=== PATIENT | male | born 1965 | race Caucasian/White ===

== ENCOUNTER 2021-08-11 09:09 | Inpatient (IN) | payer OTHER, SELFPAY ==
[2021-08-11] VITALS (19 sets, daily range): BP systolic 149–190; BP diastolic 82–114; PULSE 82–119; RESP 16–40; TEMP 36.5–36.9; O2SAT 88–99; BMI 19.0; BMI 18.7
--- NOTE | 2021-08-11 09:23 | XR_ITS ---
PROCEDURE: XR CHEST PORTABLE CLINICAL HISTORY: cough COMPARISON: No exams were available for comparison FINDINGS: There is a large left pneumothorax. There is no significant mediastinal shift to suggest tension pneumothorax. Cardiomediastinal silhouette is not enlarged pulmonary vascular markings in the remaining aerated lung and the right lung are unremarkable. There are is no pleural effusion. There is no subcutaneous emphysema to suggest penetrating injury are no definite fractures identified. No definite nodules. There is a calcified granuloma. IMPRESSION: Large left pneumothorax. At the time of this critical finding the patient already had a left chest tube placed. Dictated by: Milena Dorsey MD 08/11/2021 14:33 Milena Dorsey MD in [place] 08/11/2021 14:33
[2021-08-11 09:44] LABS: Basophils # 0.1 K/mm3 (0-0.2); Basophils % 1.3 % (0.1-2.0); Eosinophils # 0.2 K/mm3 (0.0-0.4); Eosinophils % 3.3 % (0.1-12.0); Hematocrit 53.6 % (42.0-52.0); Hemoglobin 17.9 g/dL (14.1-18.0); Lymphocytes % 16.1 % (10-50); Mean Corpuscular HGB Conc 33.4 g/dL (31.8-35.4); Mean Corpuscular Hemoglobin 37.2 pg (27.0-31.2); Mean Corpuscular Volume 111.3 fl (80-94); Mean Platelet Volume 9.2 fl (7.4-10.4); Monocytes # 0.3 K/mm3 (0.1-1.0); Monocytes % 4.8 % (1.7-9.3); Neutrophils # 4.8 K/mm3 (1.8-7.8); Neutrophils % 74.6 % (37.0-80.0); Platelet Count 227 K/mm3 (142-424); Red Blood Count 4.82 M/mm3 (4.60-6.20); Red Cell Distribution Width 13.4 % (11.5-17.5); White Blood Count 6.4 K/mm3 (4.8-10.8)
[2021-08-11 09:45] LABS: ABG Base Excess 2.3 mmol/L (-2.4-2.3); ABG HCO3 26.5 mmhg (22.0-26.0); ABG Oxygen Saturation 95 % (90-100); ABG PH 7.44 mmol/L (7.35-7.45); ABG PO2 75.1 mmhg (80-100); ABG TCO2 27.7 mmhg (23-27); Oxygen 5 %
[2021-08-11 09:46] LABS: Allen's Test ACCEPTABLE; Source Left Radial
[2021-08-11 09:57] LABS: Alanine Aminotransferase 45 U/L (12-78); Albumin Level 4.1 g/dl (3.5-5.0); Albumin/Globulin Ratio 0.9 (1.1-1.8); Alkaline Phosphatase 191 U/L (38-126); Anion Gap 12.4 mEq/L (5-15); Aspartate Amino Transferase 65 U/L (17-59); Bilirubin,Total 0.6 mg/dl (0.2-1.3); Blood Urea Nitrogen 7 mg/dl (9-20); Carbon Dioxide 32 mmol/L (22.0-30.0); Chloride 102 mmol/L (98-107); Creatinine Clearance Estimated 123 mL/min (50-200); Estimated Glomerular Filt Rate 139 ml/min (>60); GFR (African American) 169 ML/MIN (>60); Globulin 4.5 g/dL (1.3-3.2); Glucose 121 mg/dl (74-100); Potassium 3.4 mmoL/L (3.5-5.1); Sodium 143 mmol/L (136-145); Total Protein,Serum 8.6 g/dl (6.3-8.2)
--- NOTE | 2021-08-11 09:57 | ECG_ITS ---
APPROVED REPORT Exam: Resting ECG HR:101 bpm ECG Measurements Heart Rate 101 AXES TX 156 P 71 QRSd 76 QRS 259 QT 372 T 66 QTc 482 Conclusion Sinus tachycardia with fusion complexes Right superior axis deviation Anteroseptal infarct, age undetermined Abnormal ECG Electronically signed by : Camilo Reid MD 08/11/2021 21:15:51
[2021-08-11 10:08] LABS: NT Pro Brain Natriuretic Pep. 310 pg/mL (0-125)
--- NOTE | 2021-08-11 10:15 | PC.NURSE ---
conscious sedation started at 1015. at the bedside for chest tube placement. 24fr placed
[2021-08-11 10:16] LABS: Troponin I < 0.01 ng/ml (0.00-0.034)
[2021-08-11 10:23] LABS: Coronavirus 19, PCR Not Detected (NotDetected); Influenza A, PCR Not Detected (NotDetected); Influenza B, PCR Not Detected (NotDetected)
--- NOTE | 2021-08-11 10:45 | XR_ITS ---
PROCEDURE: XR CHEST PORTABLE CLINICAL HISTORY: cough Large left pneumothorax status post chest tube COMPARISON: CR XR CHEST PORTABLE from 08/11/2021 FINDINGS: There is trace apical left extrapleural air. The pneumothorax is otherwise resolved. There appears to be a large emphysematous bleb in the right lung. This may account for the left pneumothorax and could be followed up with CT in the future. No definite pleural fluid or other pulmonary lesions. There is this no enlargement of the cardiomediastinal silhouette. There are otherwise no new finding since prior study IMPRESSION: 1. Small residual left pneumothorax after left chest tube placement. 2. Large right lung emphysematous bleb, suggesting left lung bleb rupture may have produced a pneumothorax. Further evaluation could be obtained with CT. Dictated by: Milena Dorsey MD 08/11/2021 14:44 Milena Dorsey MD in [place] 08/11/2021 14:44
--- NOTE | 2021-08-11 11:28 | HMH.EDGENADL ---
ED Disposition Clinical Impression: Pneumothorax, left COPD (chronic obstructive pulmonary disease) Qualifiers: COPD type: chronic bronchitis Chronic bronchitis type: simple Qualified Code(s): J41.0 - Simple chronic bronchitis Disposition: Admitted As Inpatient Condition on Discharge: Fair Referrals: Provider,Referral, [Primary Care Provider] - - Critical Care Critical Care Time: No Attestation: On 08/11/21, the high probability of a clinically significant, sudden or life threatening deterioration of the following system(s) required my full and direct attention, intervention and personal management. The time I documented below is in addition to time spent performing reported procedures but includes the following listed in this critical care notation. Medical Decision Making - Medical Records Medical records reviewed: Yes: I reviewed the patient's medical records. - Nicolás Inquiry Pt receiving controlled substance: No Vital Signs: 08/11/21 09:09 08/11/21 09:23 08/11/21 10:15 Temperature 98.5 F Temperature Source Oral Pulse Rate [Left Radial] 112 H 98 H Respiratory Rate 40 H 20 Blood Pressure [Right Arm] 172/114 H 158/93 H Blood Pressure Mean [Right Arm] 133 114 Blood Pressure Source [Right Arm] Automatic Cuff Blood Pressure Position [Right Arm] Sitting Supine 02 Sat by Pulse Oximetry 88 L 94 L 97 Oxygen Delivery Method Room Air Nasal Cannula Nasal Cannula Oxygen Flow Rate (LPM) 4 5 08/11/21 10:20 08/11/21 10:25 08/11/21 10:30 Temperature Temperature Source Pulse Rate [Left Radial] 100 H 96 H 98 H Respiratory Rate 20 20 21 Blood Pressure [Right Arm] 170/98 H 175/103 H 152/88 H Blood Pressure Mean [Right Arm] 122 127 109 Blood Pressure Source [Right Arm] Blood Pressure Position [Right Arm] 02 Sat by Pulse Oximetry 98 98 97 Oxygen Delivery Method Nasal Cannula Nasal Cannula Nasal Cannula Oxygen Flow Rate (LPM) 5 5 5 08/11/21 10:35 08/11/21 10:40 08/11/21 10:45 Temperature Temperature Source Pulse Rate [Left Radial] 96 H 119 H 103 H Respiratory Rate 17 20 20 Blood Pressure [Right Arm] 176/95 H 153/82 H 168/97 H Blood Pressure Mean [Right Arm] 122 105 120 Blood Pressure Source [Right Arm] Blood Pressure Position [Right Arm] 02 Sat by Pulse Oximetry 96 88 L 98 Oxygen Delivery Method Nasal Cannula Nasal Cannula Nasal Cannula Oxygen Flow Rate (LPM) 5 5 5 08/11/21 11:00 08/11/21 11:15 08/11/21 11:30 Temperature Temperature Source Pulse Rate [Left Radial] 91 H 90 89 Respiratory Rate 19 20 17 Blood Pressure [Right Arm] 150/96 H 163/99 H 149/93 H Blood Pressure Mean [Right Arm] 114 120 111 Blood Pressure Source [Right Arm] Blood Pressure Position [Right Arm] 02 Sat by Pulse Oximetry 98 98 97 Oxygen Delivery Method Non-Rebreather Non-Rebreather Non-Rebreather Oxygen Flow Rate (LPM) 10 10 7 - Lab Data Lab Results 08/11/21 09:24: Specimen Source Left radial, O2 % 5, ABG pH 7.44, ABG pCO2 40.0, ABG pO2 75.1 L, ABG HCO3 26.5 H, ABG Total CO2 27.7 H, ABG O2 Saturation 95, ABG Base Excess 2.3, Valdemar Test Acceptable 08/11/21 09:30: WBC 6.4, RBC 4.82, Hgb 17.9, Hct 53.6 H, MCV 111.3 H, MCH 37.2 H, MCHC 33.4, RDW 13.4, Plt Count 227, MPV 9.2, Neut % (Auto) 74.6, Lymph % (Auto) 16.1, [place] % (Auto) 4.8, Eos % (Auto) 3.3, Baso % (Auto) 1.3, Neut # (Auto) 4.8, Lymph # (Auto) 1.0, [place] # (Auto) 0.3, Eos # (Auto) 0.2, Baso # (Auto) 0.1 08/11/21 09:30: Sodium 143, Potassium 3.4 L, Chloride 102, Carbon Dioxide 32 H, Anion Gap 12.4, BUN 7 L, Creatinine 0.60 L, Estimated Creat Clear 123, Estimated GFR 139, Est GFR ( Amer) 169, Glucose 121 H, Calcium 9.0, Total Bilirubin 0.6, AST 65 H, ALT 45, Alkaline Phosphatase 191 H, Troponin I < 0.01, NT-Pro-B Natriuret Pep 310 H, Total Protein 8.6 H, Albumin 4.1, Globulin 4.5 H, Albumin/Globulin Ratio 0.9 L 08/11/21 09:31: SARS-CoV-2 (PCR) Not detected, Influenza A Untype (PCR) Not detected, Influenza Type B (PCR) Not detec
--- NOTE | 2021-08-11 12:38 | HMH.PHAINT ---
MEDICATION RECONCILIATION COMPLETE. NO MAINTENANCE MEDS. NON-ADHERENT TO FOLLOW UPS AND NO PCP
--- NOTE | 2021-08-11 13:04 | PC.NURSE ---
report called to floor
--- NOTE | 2021-08-11 13:07 | P.CONPHA_ITS ---
[facility] Pharmacy VTE Monitoring - Patient Demographics Admission date: 08/11/21 Report Date: 08/11/21 Time: 13:07 Allergies/Adverse Reactions: Patient Allergies No Known Allergies Allergy (Verified 08/11/21 09:31) Height: 1.83 m Weight: 63.503 kg Patient Problems: Current Active Problems COPD (chronic obstructive pulmonary disease) (Acute) Pneumothorax, left (Acute) - VTE Risk Labs: VTE Related Lab Results Hgb 17.9 g/dL (14.1-18.0) 08/11/21 09:30 Hct 53.6 % (42.0-52.0) H 08/11/21 09:30 Plt Count 227 K/mm3 (142-424) 08/11/21 09:30 BUN 7 mg/dl (9-20) L 08/11/21 09:30 Creatinine 0.60 mg/dl (0.66-1.25) L 08/11/21 09:30 Estimated Creat Clear 123 mL/min (50-200) 08/11/21 09:30 - Prophylaxis VTE Prophylaxis Ordered?: Yes Types of VTE Prophylaxis: TEDS Knee High, Pharmacological Location of Applied Device: Bilateral Lower Extremeties Pharmacologic Type: Enoxaparin
--- NOTE | 2021-08-11 15:26 | HMH.GSCON ---
*Admission Date: 08/11/21 *Reason for consult:: Chest tube management *History of present illness: Patient is a 56-year-old male with history of COPD with previous history of pneumothorax who had presented to the emergency department this morning after he experienced onset of left-sided chest pain and some difficulty breathing yesterday evening. He had previous history of left-sided chest tube for spontaneous pneumothorax at [facility]. Evaluation in the emergency department this morning revealed large left-sided pneumothorax. Chest tube was placed by the ER physician. Arrangements were made for admission. Surgical consultation was obtained to help with chest tube management. Review of Systems - Review of Systems Review of systems:: pertinent systems reviewed and negative unless documented below - *Neurologic Denies headache(s) [facility] History I have reviewed the patient's past medical history: Yes Medical History: Denies:: Cancer, Diabetes Mellitus Type 1, Diabetes Mellitus Type 2, MRSA *Have you ever received a pneumonia vaccine?: No *Have you received a flu vaccine this season?: No Amputation: No Fractures: No - *Social History Last grade of school completed: 11th or 12th Smoking Status: Current every day smoker Tobacco Type: cigarettes # Packs/Day (cigarettes): 2 Alcohol Intake: current Alcohol Intake Frequency:: 3 or more drinks per day Substance Use Type: marijuana Last Used Substance: days (ago) *Occupational Status:: employed Housing: house *Travel in the last 8 weeks: None Family Hx:: Asthma, Cancer, Heart Attack, Hyperlipidemia, Hypertension, Substance abuse, Alcoholism, Mental illness Meds Home Medications Medication Instructions Recorded Confirmed Type No Known Home Medications 08/11/21 08/11/21 History Allergies Allergy/AdvReac Type Severity Reaction Status Date / Time No Known Allergies Allergy Verified 08/11/21 09:31 Exam Vital signs and Labs for Last 24 Hours: Temp Pulse Resp BP Pulse Ox 98.2 F 91 H 21 153/96 H 97 08/11/21 14:24 08/11/21 14:24 08/11/21 14:24 08/11/21 14:24 08/11/21 14:00 Laboratory Results - last 24 hr 08/11/21 09:24: Specimen Source Left radial, O2 % 5, ABG pH 7.44, ABG pCO2 40.0, ABG pO2 75.1 L, ABG HCO3 26.5 H, ABG Total CO2 27.7 H, ABG O2 Saturation 95, ABG Base Excess 2.3, Valdemar Test Acceptable 08/11/21 09:30: WBC 6.4, RBC 4.82, Hgb 17.9, Hct 53.6 H, MCV 111.3 H, MCH 37.2 H, MCHC 33.4, RDW 13.4, Plt Count 227, MPV 9.2, Neut % (Auto) 74.6, Lymph % (Auto) 16.1, [place] % (Auto) 4.8, Eos % (Auto) 3.3, Baso % (Auto) 1.3, Neut # (Auto) 4.8, Lymph # (Auto) 1.0, [place] # (Auto) 0.3, Eos # (Auto) 0.2, Baso # (Auto) 0.1 08/11/21 09:30: Sodium 143, Potassium 3.4 L, Chloride 102, Carbon Dioxide 32 H, Anion Gap 12.4, BUN 7 L, Creatinine 0.60 L, Estimated Creat Clear 123, Estimated GFR 139, Est GFR ( Amer) 169, Glucose 121 H, Calcium 9.0, Total Bilirubin 0.6, AST 65 H, ALT 45, Alkaline Phosphatase 191 H, Troponin I < 0.01, NT-Pro-B Natriuret Pep 310 H, Total Protein 8.6 H, Albumin 4.1, Globulin 4.5 H, Albumin/Globulin Ratio 0.9 L 08/11/21 09:31: SARS-CoV-2 (PCR) Not detected, Influenza A Untype (PCR) Not detected, Influenza Type B (PCR) Not detected I & O for Last 24 hours: Intake & Output 08/09/21 08/10/21 08/11/21 08/12/21 11:59 11:59 11:59 11:59 Weight 140 lb 138 lb - Routine Chest/Breast/Axilla Exam Comments: Left chest tube with dressing in place Results - Labs 08/11/21 09:30 08/11/21 09:30 Laboratory Results - last 24 hr 08/11/21 09:24: Specimen Source Left radial, O2 % 5, ABG pH 7.44, ABG pCO2 40.0, ABG pO2 75.1 L, ABG HCO3 26.5 H, ABG Total CO2 27.7 H, ABG O2 Saturation 95, ABG Base Excess 2.3, Valdemar Test Acceptable 08/11/21 09:30: WBC 6.4, RBC 4.82, Hgb 17.9, Hct 53.6 H, MCV 111.3 H, MCH 37.2 H, MCHC 33.4, RDW 13.4, Plt Count 227, MPV 9.2, Neut % (Auto) 74.6, Lymph % (Auto) 16.1, [place] % (Auto) 4.8, Eos %
--- NOTE | 2021-08-11 16:45 | HMH.HP ---
*Admission Date: 08/11/21 *Chief complaint: Chest pain and shortness of breath *History of present illness: 56-year-old male with significant smoking history and history of prior pneumothorax of the left lung approximately 3 to 4 years ago presented to the emergency department on August 11 after developing acute onset of left-sided chest pain with shortness of breath on the evening of August 10. In the emergency department patient was found to have large left pneumothorax. Chest tube was placed by ER physician with reexpansion of the left lung. Patient has been admitted with for his pneumothorax and need for chest tube management. General surgery has been consulted for chest tube management. Patient had pain earlier in the shift at chest tube site but this has been relieved with Toradol. He reports a history of opiate dependence and would like to avoid opiate pain medications. Significant history also includes daily alcohol use drinking a half to a whole fifth of rum. Patient smokes marijuana frequently. He is a 1 to 3 pack/day smoker since the age of 16. [facility] for a left-sided pneumothorax that resolved with placement of chest tube. There is no family history of pneumothoraces [facility] History I have reviewed the patient's past medical history: Yes Medical History: Denies:: Cancer, Diabetes Mellitus Type 1, Diabetes Mellitus Type 2, MRSA *Have you ever received a pneumonia vaccine?: No *Have you received a flu vaccine this season?: No Comment:: Pneumothorax Other Surgeries: Yes: No Previous Surgery Amputation: No Fractures: No - *Social History Last grade of school completed: 11th or 12th Smoking Status: Current every day smoker Tobacco Type: cigarettes # Packs/Day (cigarettes): 2 Alcohol Intake: current Alcohol Intake Frequency:: 3 or more drinks per day Substance Use Type: marijuana Last Used Substance: days (ago) *Occupational Status:: employed Housing: house *Travel in the last 8 weeks: None Family Hx:: Asthma, Cancer, Heart Attack, Hyperlipidemia, Hypertension, Substance abuse, Alcoholism, Mental illness Review of Systems - Review of Systems Review of systems:: pertinent systems reviewed and negative unless documented below - *Neurologic Denies headache(s) Meds Home Medications Medication Instructions Recorded Confirmed Type No Known Home Medications 08/11/21 08/11/21 History Allergies Allergy/AdvReac Type Severity Reaction Status Date / Time No Known Allergies Allergy Verified 08/11/21 09:31 Exam Vital signs and Labs for Last 24 Hours: Temp Pulse Resp BP Pulse Ox 98.5 F 85 20 176/106 H 96 08/11/21 15:38 08/11/21 15:38 08/11/21 15:38 08/11/21 15:38 08/11/21 15:38 Laboratory Results - last 24 hr 08/11/21 09:24: Specimen Source Left radial, O2 % 5, ABG pH 7.44, ABG pCO2 40.0, ABG pO2 75.1 L, ABG HCO3 26.5 H, ABG Total CO2 27.7 H, ABG O2 Saturation 95, ABG Base Excess 2.3, Valdemar Test Acceptable 08/11/21 09:30: WBC 6.4, RBC 4.82, Hgb 17.9, Hct 53.6 H, MCV 111.3 H, MCH 37.2 H, MCHC 33.4, RDW 13.4, Plt Count 227, MPV 9.2, Neut % (Auto) 74.6, Lymph % (Auto) 16.1, [place] % (Auto) 4.8, Eos % (Auto) 3.3, Baso % (Auto) 1.3, Neut # (Auto) 4.8, Lymph # (Auto) 1.0, [place] # (Auto) 0.3, Eos # (Auto) 0.2, Baso # (Auto) 0.1 08/11/21 09:30: Sodium 143, Potassium 3.4 L, Chloride 102, Carbon Dioxide 32 H, Anion Gap 12.4, BUN 7 L, Creatinine 0.60 L, Estimated Creat Clear 123, Estimated GFR 139, Est GFR ( Amer) 169, Glucose 121 H, Calcium 9.0, Total Bilirubin 0.6, AST 65 H, ALT 45, Alkaline Phosphatase 191 H, Troponin I < 0.01, NT-Pro-B Natriuret Pep 310 H, Total Protein 8.6 H, Albumin 4.1, Globulin 4.5 H, Albumin/Globulin Ratio 0.9 L 08/11/21 09:31: SARS-CoV-2 (PCR) Not detected, Influenza A Untype (PCR) Not detected, Influenza Type B (PCR) Not detected I & O for Last 24 hours: Intake & Output 08/09/21 08/10/21 08/11/21 10/26/21
[2021-08-12] VITALS: BP 163/95; PULSE 76; RESP 16; TEMP 36.7; O2SAT 98
--- NOTE | 2021-08-12 03:42 | PC.NURSE ---
No acute changes t/o shift. Pt remains on 4L NC with O2 saturation >95%. Chest tube present on left side chest, dressing C/D/I. Pt c/o of pain in left chest x1 admin meds per MAR with relief. Pt's CIWA scores have been 0 this shift. VSS, call light within reach, will continue to monitor.
[2021-08-12 03:49] VITALS: BP 172/90; PULSE 75; RESP 12; TEMP 36.7; O2SAT 100
[2021-08-12 05:10] VITALS: BMI 18.6
[2021-08-12 06:24] LABS: Basophils # 0.1 K/mm3 (0-0.2); Basophils % 1.2 % (0.1-2.0); Eosinophils # 0.4 K/mm3 (0.0-0.4); Eosinophils % 6.7 % (0.1-12.0); Hematocrit 50.6 % (42.0-52.0); Hemoglobin 16.3 g/dL (14.1-18.0); Lymphocytes # 0.9 K/mm3 (0.7-4.5); Lymphocytes % 14.3 % (10-50); Mean Corpuscular HGB Conc 32.3 g/dL (31.8-35.4); Mean Corpuscular Hemoglobin 36.7 pg (27.0-31.2); Mean Corpuscular Volume 113.5 fl (80-94); Mean Platelet Volume 8.7 fl (7.4-10.4); Monocytes # 0.3 K/mm3 (0.1-1.0); Monocytes % 4.7 % (1.7-9.3); Neutrophils # 4.7 K/mm3 (1.8-7.8); Neutrophils % 73.1 % (37.0-80.0); Platelet Count 184 K/mm3 (142-424); Red Blood Count 4.45 M/mm3 (4.60-6.20); Red Cell Distribution Width 13.4 % (11.5-17.5); White Blood Count 6.4 K/mm3 (4.8-10.8)
[2021-08-12 06:39] LABS: Chloride 103 mmol/L (98-107); Potassium 3.2 mmoL/L (3.5-5.1); Sodium 139 mmol/L (136-145)
[2021-08-12 06:42] LABS: Anion Gap 8.2 mEq/L (5-15); Blood Urea Nitrogen 9 mg/dl (9-20); Carbon Dioxide 31 mmol/L (22.0-30.0); Creatinine Clearance Estimated 146 mL/min (50-200); Estimated Glomerular Filt Rate 172 ml/min (>60); GFR (African American) 208 ML/MIN (>60); Glucose 90 mg/dl (74-100)
[2021-08-12 06:57] LABS: Magnesium 1.5 mg/dl (1.6-2.3)
--- NOTE | 2021-08-12 07:23 | HMH.ACPN2 ---
Internal Medicine - PN: Subj *Date: 08/12/21 *Time: 07:23 Interval history: Patient reports pain is well controlled. He does admit some pain with deep breathing. Exam Vital signs and Labs for Last 24 Hours: Temp Pulse Resp BP Pulse Ox 98.1 F 75 12 172/90 H 100 08/12/21 03:49 08/12/21 03:49 08/12/21 03:49 08/12/21 03:49 08/12/21 03:49 Laboratory Results - last 24 hr 08/11/21 09:24: Specimen Source Left radial, O2 % 5, ABG pH 7.44, ABG pCO2 40.0, ABG pO2 75.1 L, ABG HCO3 26.5 H, ABG Total CO2 27.7 H, ABG O2 Saturation 95, ABG Base Excess 2.3, Valdemar Test Acceptable 08/11/21 09:30: WBC 6.4, RBC 4.82, Hgb 17.9, Hct 53.6 H, MCV 111.3 H, MCH 37.2 H, MCHC 33.4, RDW 13.4, Plt Count 227, MPV 9.2, Neut % (Auto) 74.6, Lymph % (Auto) 16.1, [place] % (Auto) 4.8, Eos % (Auto) 3.3, Baso % (Auto) 1.3, Neut # (Auto) 4.8, Lymph # (Auto) 1.0, [place] # (Auto) 0.3, Eos # (Auto) 0.2, Baso # (Auto) 0.1 08/11/21 09:30: Sodium 143, Potassium 3.4 L, Chloride 102, Carbon Dioxide 32 H, Anion Gap 12.4, BUN 7 L, Creatinine 0.60 L, Estimated Creat Clear 123, Estimated GFR 139, Est GFR ( Amer) 169, Glucose 121 H, Calcium 9.0, Total Bilirubin 0.6, AST 65 H, ALT 45, Alkaline Phosphatase 191 H, Troponin I < 0.01, NT-Pro-B Natriuret Pep 310 H, Total Protein 8.6 H, Albumin 4.1, Globulin 4.5 H, Albumin/Globulin Ratio 0.9 L 08/11/21 09:31: SARS-CoV-2 (PCR) Not detected, Influenza A Untype (PCR) Not detected, Influenza Type B (PCR) Not detected 08/12/21 05:30: WBC 6.4, RBC 4.45 L, Hgb 16.3, Hct 50.6, MCV 113.5 H, MCH 36.7 H, MCHC 32.3, RDW 13.4, Plt Count 184, MPV 8.7, Neut % (Auto) 73.1, Lymph % (Auto) 14.3, [place] % (Auto) 4.7, Eos % (Auto) 6.7, Baso % (Auto) 1.2, Neut # (Auto) 4.7, Lymph # (Auto) 0.9, [place] # (Auto) 0.3, Eos # (Auto) 0.4, Baso # (Auto) 0.1 08/12/21 05:30: Sodium 139, Potassium 3.2 L, Chloride 103, Carbon Dioxide 31 H, Anion Gap 8.2, BUN 9 D, Creatinine 0.50 L, Estimated Creat Clear 146, Estimated GFR 172, Est GFR ( Amer) 208 D, Glucose 90 D, Calcium 8.0 L 08/12/21 05:30: Magnesium 1.5 L I & O for Last 24 hours: Intake & Output 08/09/21 08/10/21 08/11/21 08/12/21 11:59 11:59 11:59 11:59 Intake Total 360 / 360 Output Total 410 / 410 Balance -50 / -50 Weight 140 lb 138 lb 0.009 oz - Constitutional no acute distress - *Routine Respiratory Exam Present: rhonchi (On the left) - *Routine Cardiovascular Exam Present: RRR Assessment and Plan (1) Pneumothorax, left Status: Acute Category: Medical Code(s): J93.9 - Pneumothorax, unspecified (2) Ruptured emphysematous bleb of lung Status: Acute Category: Medical Code(s): J43.9 - Emphysema, unspecified (3) Alcoholism Status: Acute Category: Medical Code(s): F10.20 - Alcohol dependence, uncomplicated (4) Cigarette smoker Status: Acute Category: Social Hx Code(s): F17.210 - Nicotine dependence, cigarettes, uncomplicated (5) Marijuana use, continuous Status: Acute Category: Medical Code(s): F12.90 - Cannabis use, unspecified, uncomplicated (6) Hypokalemia Status: Acute Category: Medical Code(s): E87.6 - Hypokalemia - Assessment and plan all Dx Assessment and Plan for all problems:: 1. Patient is stable. Chest tube management per Dr. Alvarez 2. Add potassium for patient's hypokalemia 3. Patient has not shown any signs of alcohol withdrawal. Continue scheduled Ativan with periodic CIWA scoring and use of as needed benzos
[2021-08-12 08:00] VITALS: BP 167/98; PULSE 71; RESP 19; TEMP 36.6; O2SAT 98
--- NOTE | 2021-08-12 08:42 | P.PN_ITS ---
Subjective Patient reports: no new complaints Progress Note: A&P (1) Pneumothorax, left Status: Acute Assessment and plan: Continue chest tube to suction due to air leak. (2) Ruptured emphysematous bleb of lung Status: Acute (3) Alcoholism Status: Acute (4) Cigarette smoker Status: Acute (5) Marijuana use, continuous Status: Acute (6) Hypokalemia Status: Acute Exam Vital signs and Labs for Last 24 Hours: Temp Pulse Resp BP Pulse Ox 98.1 F 75 12 172/90 H 100 08/12/21 03:49 08/12/21 03:49 08/12/21 03:49 08/12/21 03:49 08/12/21 03:49 Laboratory Results - last 24 hr 08/11/21 09:24: Specimen Source Left radial, O2 % 5, ABG pH 7.44, ABG pCO2 40.0, ABG pO2 75.1 L, ABG HCO3 26.5 H, ABG Total CO2 27.7 H, ABG O2 Saturation 95, ABG Base Excess 2.3, Valdemar Test Acceptable 08/11/21 09:30: WBC 6.4, RBC 4.82, Hgb 17.9, Hct 53.6 H, MCV 111.3 H, MCH 37.2 H , MCHC 33.4, RDW 13.4, Plt Count 227, MPV 9.2, Neut % (Auto) 74.6, Lymph % (Auto) 16.1, [place] % (Auto) 4.8, Eos % (Auto) 3.3, Baso % (Auto) 1.3, Neut # (Auto) 4.8, Lymph # (Auto) 1.0, [place] # (Auto) 0.3, Eos # (Auto) 0.2, Baso # (Auto) 0.1 08/11/21 09:30: Sodium 143, Potassium 3.4 L, Chloride 102, Carbon Dioxide 32 H, Anion Gap 12.4, BUN 7 L, Creatinine 0.60 L, Estimated Creat Clear 123, Estimated GFR 139, Est GFR ( Amer) 169, Glucose 121 H, Calcium 9.0, Total Bilirubin 0.6, AST 65 H, ALT 45, Alkaline Phosphatase 191 H, Troponin I < 0.01, NT-Pro-B Natriuret Pep 310 H, Total Protein 8.6 H, Albumin 4.1, Globulin 4.5 H, Albumin/Globulin Ratio 0.9 L 08/11/21 09:31: SARS-CoV-2 (PCR) Not detected, Influenza A Untype (PCR) Not detected, Influenza Type B (PCR) Not detected 08/12/21 05:30: WBC 6.4, RBC 4.45 L, Hgb 16.3, Hct 50.6, MCV 113.5 H, MCH 36.7 H , MCHC 32.3, RDW 13.4, Plt Count 184, MPV 8.7, Neut % (Auto) 73.1, Lymph % (Auto) 14.3, [place] % (Auto) 4.7, Eos % (Auto) 6.7, Baso % (Auto) 1.2, Neut # (Auto) 4.7, Lymph # (Auto) 0.9, [place] # (Auto) 0.3, Eos # (Auto) 0.4, Baso # (Auto) 0.1 08/12/21 05:30: Sodium 139, Potassium 3.2 L, Chloride 103, Carbon Dioxide 31 H, Anion Gap 8.2, BUN 9 D, Creatinine 0.50 L, Estimated Creat Clear 146, Estimated GFR 172, Est GFR ( Amer) 208 D, Glucose 90 D, Calcium 8.0 L 08/12/21 05:30: Magnesium 1.5 L I & O for Last 24 hours: Intake & Output 08/09/21 08/10/21 08/11/21 08/12/21 11:59 11:59 11:59 11:59 Intake Total 360 / 360 Output Total 410 / 410 Balance -50 / -50 Weight 140 lb 138 lb 0.009 oz - Routine Chest/Breast/Axilla Exam Comments: Chest tube dressing intact. Positive air leak.
--- NOTE | 2021-08-12 08:44 | XR_ITS ---
PROCEDURE: XR CHEST PORTABLE CLINICAL HISTORY: PNEUMOTHORAX COMPARISON: CR XR CHEST PORTABLE from 08/11/2021 CR XR CHEST PORTABLE from 08/11/2021 FINDINGS: There apparently has been interval resolution of the trace left apical pneumothorax. The chest tube remains in place left upper mid chest. Minimal chronic scarring is seen at the left costophrenic angle. Again noted is a large bleb right midlung field. IMPRESSION: Stable chronic lung changes, essentially complete resolution of left-sided pneumothorax Dictated by: Dr. Zachery Shine MD 08/12/2021 10:14 Dr. Zachery Shine MD in [place] 08/12/2021 10:14
[2021-08-12 16:00] VITALS: BP 158/78; PULSE 76; RESP 17; TEMP 36.5; O2SAT 96
--- NOTE | 2021-08-12 17:12 | PC.NURSE ---
Pt has done well this shift. Left chest tube remains intact, dressing remains CDI. 104 mL of [place] drainage noted to pleur-evac this shift. Pt has c/o left chest pain x1 this shift and was medicated with PRN ketorolac w/ favorable results. CIWA scores have been consistently 0 this shift, scheduled ativan has not been needed. No other acute changes or complaints, will continue to monitor.
[2021-08-12 20:00] VITALS: BP 147/88; PULSE 80; RESP 18; TEMP 36.9; O2SAT 97
[2021-08-12 23:51] VITALS: BP 140/78; PULSE 76; RESP 18; TEMP 36.6; O2SAT 97
[2021-08-13 04:00] VITALS: BP 165/94; PULSE 77; RESP 18; TEMP 36.9; O2SAT 93
--- NOTE | 2021-08-13 04:12 | PC.NURSE ---
Addendum entered by Porsche Roman RN 08/13/21 05:52: CIWA scores have all been 0 this shift Original Note: pt A&Ox4, has rested intermittently t/o shift, did complain of pain in the left chest and was treated per DEC, has remained on room air with O2 sats 97%, left chest tube remains intact, dressing C/D/I, 11 mL out so far this shift
[2021-08-13 04:35] VITALS: BMI 18.6
--- NOTE | 2021-08-13 07:03 | HMH.GSPN ---
Subjective Narrative: Patient resting. Observation of the chest tube reveals positive air leak. Progress Note: A&P (1) Pneumothorax, left Status: Acute (2) Ruptured emphysematous bleb of lung Status: Acute (3) Alcoholism Status: Acute (4) Cigarette smoker Status: Acute (5) Marijuana use, continuous Status: Acute (6) Hypokalemia Status: Acute Assessment and Plan for All Diagnoses:: Continue chest tube to suction due to persistent air leak. Chest x-ray yesterday revealed no evidence of any residual pneumothorax. Exam Vital signs and Labs for Last 24 Hours: Temp Pulse Resp BP Pulse Ox 98.4 F 77 18 165/94 H 93 L 08/13/21 04:00 08/13/21 04:00 08/13/21 04:00 08/13/21 04:00 08/13/21 04:00 Laboratory Results - last 24 hr 08/12/21 05:30: Magnesium 1.5 L I & O for Last 24 hours: Intake & Output 08/10/21 08/11/21 08/12/21 08/13/21 11:59 11:59 11:59 11:59 Intake Total 600 / 600 2440 / 2440 Output Total 410 / 410 3715 / 3715 Balance 190 / 190 -1275 / -1275 Weight 140 lb 138 lb 0.009 oz 138 lb
--- NOTE | 2021-08-13 07:16 | HMH.ACPN2 ---
Internal Medicine - PN: Subj *Date: 08/13/21 *Time: 07:16 Interval history: Patient had no acute events. Pain is controlled with Toradol. Patient has been seen by surgery this morning and air leak persists so patient will remain on wall suction. Chest x-ray yesterday shows resolution of the pneumothorax Exam Vital signs and Labs for Last 24 Hours: Temp Pulse Resp BP Pulse Ox 98.4 F 77 18 165/94 H 93 L 08/13/21 04:00 08/13/21 04:00 08/13/21 04:00 08/13/21 04:00 08/13/21 04:00 I & O for Last 24 hours: Intake & Output 08/10/21 08/11/21 08/12/21 08/13/21 11:59 11:59 11:59 11:59 Intake Total 600 / 600 2440 / 2440 Output Total 410 / 410 3715 / 3715 Balance 190 / 190 -1275 / -1275 Weight 140 lb 138 lb 0.009 oz 138 lb - Constitutional no acute distress - *Routine Respiratory Exam Comments: Coarse breath sounds left lung - *Routine Cardiovascular Exam Present: RRR Assessment and Plan (1) Pneumothorax, left Status: Acute Category: Medical Code(s): J93.9 - Pneumothorax, unspecified (2) Ruptured emphysematous bleb of lung Status: Acute Category: Medical Code(s): J43.9 - Emphysema, unspecified (3) Alcoholism Status: Acute Category: Medical Code(s): F10.20 - Alcohol dependence, uncomplicated (4) Cigarette smoker Status: Acute Category: Social Hx Code(s): F17.210 - Nicotine dependence, cigarettes, uncomplicated (5) Marijuana use, continuous Status: Acute Category: Medical Code(s): F12.90 - Cannabis use, unspecified, uncomplicated (6) Hypokalemia Status: Acute Category: Medical Code(s): E87.6 - Hypokalemia - Assessment and plan all Dx Assessment and Plan for all problems:: 1. Continue chest tube 2. Replace magnesium for mild hypomagnesemia
[2021-08-13 07:17] LABS: Chloride 103 mmol/L (98-107)
[2021-08-13 07:18] LABS: Potassium 3.8 mmoL/L (3.5-5.1); Sodium 137 mmol/L (136-145)
[2021-08-13 07:21] LABS: Anion Gap 10.8 mEq/L (5-15); Blood Urea Nitrogen 9 mg/dl (9-20); Calcium 8.8 mg/dl (8.4-10.2); Carbon Dioxide 27 mmol/L (22.0-30.0); Creatinine Clearance Estimated 122 mL/min (50-200); Estimated Glomerular Filt Rate 139 ml/min (>60); GFR (African American) 169 ML/MIN (>60); Glucose 89 mg/dl (74-100)
[2021-08-13 08:00] VITALS: BP 149/85; PULSE 88; RESP 18; TEMP 36.7; O2SAT 93
[2021-08-13 10:51] VITALS: RESP 18
[2021-08-13 13:15] LABS: Alpha-1-Antitrypsin 141 mg/dL (101-187)
--- NOTE | 2021-08-13 15:11 | HMH.GSPN ---
Subjective Narrative: Some chest wall pain. Patient states that he feels some possible leak around the chest tube site. Progress Note: A&P (1) Pneumothorax, left Status: Acute (2) Ruptured emphysematous bleb of lung Status: Acute (3) Alcoholism Status: Acute (4) Cigarette smoker Status: Acute (5) Marijuana use, continuous Status: Acute (6) Hypokalemia Status: Acute Assessment and Plan for All Diagnoses:: Persistent air leak. Continue chest tube to suction. If this persists without evidence of resolution could require transfer for thoracic surgery possible thoracoscopic surgical intervention. Exam Vital signs and Labs for Last 24 Hours: Temp Pulse Resp BP Pulse Ox 98.0 F 88 18 149/85 H 93 L 08/13/21 08:00 08/13/21 08:00 08/13/21 10:51 08/13/21 08:00 08/13/21 08:00 Laboratory Results - last 24 hr 08/12/21 05:30: [id number] 141 08/13/21 06:51: Sodium 137, Potassium 3.8, Chloride 103, Carbon Dioxide 27, Anion Gap 10.8, BUN 9, Creatinine 0.60 L, Estimated Creat Clear 122, Estimated GFR 139, Est GFR ( Amer) 169, Glucose 89, Calcium 8.8 I & O for Last 24 hours: Intake & Output 08/11/21 08/12/21 08/13/21 08/14/21 11:59 11:59 11:59 11:59 Intake Total 600 / 600 2920 / 2920 120 / 120 Output Total 410 / 410 3715 / 3715 Balance 190 / 190 -795 / -795 120 / 120 Weight 140 lb 138 lb 0.009 oz 138 lb - Routine Chest/Breast/Axilla Exam Chest wall: Present: tenderness Comments: Dressing changed. Chest tube site intact. Some tenderness and some blistering from tape. No evidence of any leak around the chest tube.
[2021-08-13 15:15] VITALS: RESP 20
--- NOTE | 2021-08-13 15:17 | PC.NURSE ---
Chest tube dressing to L Chest wall taken off by Dr. Alvarez and re-dressed. Small air leak still present, MD aware. Pt medicated afterwards w/ morphine d/t toradol not being able to be given yet.
[2021-08-13 16:00] VITALS: BP 148/90; PULSE 65; RESP 20; TEMP 37.1; O2SAT 96
[2021-08-13 20:00] VITALS: BP 141/82; PULSE 66; RESP 20; TEMP 36.8; O2SAT 97
[2021-08-14] VITALS: BP 136/80; PULSE 72; RESP 19; TEMP 36.7; O2SAT 96
--- NOTE | 2021-08-14 03:06 | PC.NURSE ---
A&OX4. TOLERATING RA WELL. PT HAS C/O PAIN X1 THUS FAR, TX PER MAR. ON REASSESSMENT PT IS ASLEEP IN BED. CHEST TUBE CONTINUES TO DRAIN SEROSANG DRAINAGE. DRESSING CDI. NO OTHER C/O THUS FAR. VSS WILL CONTINUE TO MONITOR.
[2021-08-14 04:00] VITALS: BP 174/89; PULSE 66; RESP 19; TEMP 36.8; O2SAT 95
[2021-08-14 04:35] VITALS: BMI 18.7
--- NOTE | 2021-08-14 06:18 | PC.NURSE ---
CHEST TUBE OUTPUT UP TO 180ML THIS SHIFT.
--- NOTE | 2021-08-14 06:38 | P.PN_ITS ---
Subjective Patient reports: no new complaints (He states that his breathing is okay ) Progress Note: A&P (1) Pneumothorax, left Status: Acute Assessment and plan: Overall, slowly improving with chest tube in position. Persistent, but slowly- improving air leak. No obvious system leak noted. Chest x-ray ordered Continue at 20 of suction for now May ultimately require transfer to tertiary care center for thoracic intervention if he does not continue to show improvement (2) Ruptured emphysematous bleb of lung Status: Acute (3) Alcoholism Status: Acute (4) Cigarette smoker Status: Acute (5) Marijuana use, continuous Status: Acute (6) Hypokalemia Status: Acute Exam Vital signs and Labs for Last 24 Hours: Temp Pulse Resp BP Pulse Ox 98.3 F 66 19 174/89 H 95 08/14/21 04:00 08/14/21 04:00 08/14/21 04:00 08/14/21 04:00 08/14/21 04:00 Laboratory Results - last 24 hr 08/12/21 05:30: [id number] 141 08/13/21 06:51: Sodium 137, Potassium 3.8, Chloride 103, Carbon Dioxide 27, Anion Gap 10.8, BUN 9, Creatinine 0.60 L, Estimated Creat Clear 122, Estimated GFR 139, Est GFR ( Amer) 169, Glucose 89, Calcium 8.8 I & O for Last 24 hours: Intake & Output 08/11/21 08/12/21 08/13/21 08/14/21 11:59 11:59 11:59 11:59 Intake Total 600 / 600 2920 / 2920 840 / 840 Output Total 410 / 410 3715 / 3715 1942 / 1942 Balance 190 / 190 -795 / -795 -1102 / -1102 Weight 140 lb 138 lb 0.009 oz 138 lb 138 lb 2 oz - Constitutional no acute distress - *Routine Respiratory Exam Absent: respiratory distress Comments: Persistent air leak noted; however, severity of leak improved over 24 hours. No obvious system leak noted. - *Routine Cardiovascular Exam Present: RRR
--- NOTE | 2021-08-14 06:40 | XR_ITS ---
PROCEDURE: XR CHEST PORTABLE CLINICAL HISTORY: ptx COMPARISON: CR XR CHEST PORTABLE from 08/11/2021 CR XR CHEST PORTABLE from 08/11/2021 CR XR CHEST PORTABLE from 08/12/2021 FINDINGS: No left pneumothorax. Chest tube remains in place on the left. No right pneumothorax. Again identified is a very large bulla in the right lung. No pleural fluid. Osseous structures and soft tissues relatively unremarkable except for some mild subcutaneous emphysema associated with chest tube. Cardiomediastinal silhouette is not enlarged. IMPRESSION: No left pneumothorax. Dictated by: Milena Dorsey MD 08/14/2021 08:27 Milena Dorsey MD in [facility] 08/14/2021 08:27
--- NOTE | 2021-08-14 06:52 | HMH.ACPN2 ---
Internal Medicine - PN: Subj *Date: 08/14/21 *Time: 06:52 Interval history: No complaints. Pain remains controlled with Toradol. Airleak seems to be improving. Patient remains on wall suction and surgery has ordered chest x-ray today. Exam Vital signs and Labs for Last 24 Hours: Temp Pulse Resp BP Pulse Ox 98.3 F 66 19 174/89 H 95 08/14/21 04:00 08/14/21 04:00 08/14/21 04:00 08/14/21 04:00 08/14/21 04:00 Laboratory Results - last 24 hr 08/12/21 05:30: Vycmq-2-Jdccstctrbt 141 08/13/21 06:51: Sodium 137, Potassium 3.8, Chloride 103, Carbon Dioxide 27, Anion Gap 10.8, BUN 9, Creatinine 0.60 L, Estimated Creat Clear 122, Estimated GFR 139, Est GFR ( Amer) 169, Glucose 89, Calcium 8.8 I & O for Last 24 hours: Intake & Output 08/11/21 08/12/21 08/13/21 08/14/21 11:59 11:59 11:59 11:59 Intake Total 600 / 600 2920 / 2920 840 / 840 Output Total 410 / 410 3715 / 3715 1942 / 1942 Balance 190 / 190 -795 / -795 -1102 / -1102 Weight 140 lb 138 lb 0.009 oz 138 lb 138 lb 2 oz - Constitutional no acute distress - *Routine Respiratory Exam Present: rhonchi - *Routine Cardiovascular Exam Present: RRR Assessment and Plan (1) Pneumothorax, left Status: Acute Category: Medical Code(s): J93.9 - Pneumothorax, unspecified (2) Ruptured emphysematous bleb of lung Status: Acute Category: Medical Code(s): J43.9 - Emphysema, unspecified (3) Alcoholism Status: Acute Category: Medical Code(s): F10.20 - Alcohol dependence, uncomplicated (4) Cigarette smoker Status: Acute Category: Social Hx Code(s): F17.210 - Nicotine dependence, cigarettes, uncomplicated (5) Marijuana use, continuous Status: Acute Category: Medical Code(s): F12.90 - Cannabis use, unspecified, uncomplicated (6) Hypokalemia Status: Acute Category: Medical Code(s): E87.6 - Hypokalemia - Assessment and plan all Dx Assessment and Plan for all problems:: Chest tube management per surgery service. Decrease scheduled Ativan to half milligram every 6 hours Continue oral potassium replacement
[2021-08-14 08:00] VITALS: BP 161/89; PULSE 72; RESP 17; TEMP 36.7; O2SAT 96
--- NOTE | 2021-08-14 15:35 | PC.NURSE ---
No acute changes. Remains on room air. Lungs w/ scat ronchi. Sat mid 90's. HR regular. Abdomen is soft, non-tender w/ active BS in all quads. Chest tube remain in place to L chest wall, dressing c/d/i. Continues to low wall suction per MD orders. He has not required any pain medication thus far. No BM this shift. Voiding w/o difficulty. No complaints voiced. Call jennyfer w/in reach.
[2021-08-14 16:00] VITALS: BP 164/76; PULSE 77; RESP 18; TEMP 36.9; O2SAT 97
[2021-08-14 19:41] VITALS: BP 133/75; PULSE 80; RESP 20; TEMP 36.8; O2SAT 94
--- NOTE | 2021-08-15 03:14 | PC.NURSE ---
A&OX4. HAS CONTINUED TO C/O INTERMITTENT L SIDED CHEST PAIN. TX PER DEC. MEDICATION IS EFFECTIVE. PT HAS SLEPT MAJORITY OF SHIFT. UP INDEPENDENTLY TO USE URINAL. NO OTHER C/O THUS FAR, VSS WILL CONTINUE TO MONITOR.
[2021-08-15 04:00] VITALS: BP 169/91; PULSE 80; RESP 17; TEMP 36.7; O2SAT 98
--- NOTE | 2021-08-15 07:10 | PC.NURSE ---
CHEST TUBE DRAINAGE IS UP TO 200 AT 0700.
--- NOTE | 2021-08-15 07:15 | HMH.ACPN2 ---
Internal Medicine - PN: Subj *Date: 08/15/21 *Time: 07:15 Interval history: Patient has no complaints. Pain remains well controlled with Toradol. Exam Vital signs and Labs for Last 24 Hours: Temp Pulse Resp BP Pulse Ox 98.1 F 80 17 169/91 H 98 08/15/21 04:00 08/15/21 04:00 08/15/21 04:00 08/15/21 04:00 08/15/21 04:00 I & O for Last 24 hours: Intake & Output 08/12/21 08/13/21 08/14/21 08/15/21 11:59 11:59 11:59 11:59 Intake Total 600 / 600 2920 / 2920 1080 / 1080 480 / 480 Output Total 410 / 410 3715 / 3715 2242 / 2242 1999 Balance 190 / 190 -795 / -795 -1162 / -1162 -1520 / -1520 Weight 138 lb 0.009 oz 138 lb 138 lb 2 oz Narrative: Patient appears comfortable. Breath sounds remain distant. Chest tube is in place. Chest x-ray from yesterday shows resolved pneumothorax Assessment and Plan (1) Pneumothorax, left Status: Acute Category: Medical Code(s): J93.9 - Pneumothorax, unspecified (2) Ruptured emphysematous bleb of lung Status: Acute Category: Medical Code(s): J43.9 - Emphysema, unspecified (3) Alcoholism Status: Acute Category: Medical Code(s): F10.20 - Alcohol dependence, uncomplicated (4) Cigarette smoker Status: Acute Category: Social Hx Code(s): F17.210 - Nicotine dependence, cigarettes, uncomplicated (5) Marijuana use, continuous Status: Acute Category: Medical Code(s): F12.90 - Cannabis use, unspecified, uncomplicated (6) Hypokalemia Status: Acute Category: Medical Code(s): E87.6 - Hypokalemia - Assessment and plan all Dx Assessment and Plan for all problems:: 1. Await surgeon's evaluation this morning.
[2021-08-15 07:59] VITALS: BP 148/94; PULSE 79; RESP 18; TEMP 36.9; O2SAT 93
--- NOTE | 2021-08-15 08:48 | HMH.GSPN ---
Subjective Narrative: Patient without complaints. No appreciable chest pain or shortness of breath. Progress Note: A&P (1) Pneumothorax, left Status: Acute Assessment and plan: Due to persistent air leak continue chest tube to suction. May require transfer for possible video-assisted thorascopic surgery (2) Ruptured emphysematous bleb of lung Status: Acute (3) Alcoholism Status: Acute (4) Cigarette smoker Status: Acute (5) Marijuana use, continuous Status: Acute (6) Hypokalemia Status: Acute Exam Vital signs and Labs for Last 24 Hours: Temp Pulse Resp BP Pulse Ox 98.5 F 79 18 148/94 H 93 L 08/15/21 07:59 08/15/21 07:59 08/15/21 07:59 08/15/21 07:59 08/15/21 07:59 I & O for Last 24 hours: Intake & Output 08/12/21 08/13/21 08/14/21 08/15/21 11:59 11:59 11:59 11:59 Intake Total 600 / 600 2920 / 2920 1080 / 1080 960 / 960 Output Total 410 / 410 3715 / 3715 2242 / 2242 1999 Balance 190 / 190 -795 / -795 -1162 / -1162 -1040 / -1040 Weight 138 lb 0.009 oz 138 lb 138 lb 2 oz - Routine Chest/Breast/Axilla Exam Comments: Persistent moderate air leak
[2021-08-15 15:40] VITALS: BP 154/90; PULSE 73; RESP 20; TEMP 37.3; O2SAT 95
--- NOTE | 2021-08-15 16:11 | PC.NURSE ---
Patient is non tele and on room. Patient is up ad-hermila. No c/o per patient. Bed in lowest position and phone and call light in reach. Will continue to monitor.
[2021-08-16] VITALS: BP 140/77; PULSE 66; RESP 16; TEMP 36.6; O2SAT 94; O2SAT 99
[2021-08-16 04:00] VITALS: BP 144/68; PULSE 64; RESP 16; TEMP 36.6; O2SAT 96
[2021-08-16 04:54] VITALS: BMI 18.7
--- NOTE | 2021-08-16 04:57 | PC.NURSE ---
pt has rested majority of this shift. remains a&ox4. dressing to L chest c/d/i. c/o left side pain earlier this shift. treated per mar with effectiveness noted. remains on RA w/ no c/o soa. at 2130 [facility] called to report they do not have a bed available.
[2021-08-16 08:00] VITALS: BP 151/89; PULSE 77; RESP 16; TEMP 36.9; O2SAT 91
--- NOTE | 2021-08-16 08:52 | P.PN_ITS ---
Internal Medicine - PN: Subj *Date: 08/16/21 *Time: 08:52 Interval history: Patient complains of some chest congestion today. Coughing is painful. Toradol improves patient's pain. Yesterday transfer to was initiated for potential pleurodesis as patient has a persistent air leak Exam Vital signs and Labs for Last 24 Hours: Temp Pulse Resp BP Pulse Ox 97.9 F 64 16 144/68 H 96 08/16/21 04:00 08/16/21 04:00 08/16/21 04:00 08/16/21 04:00 08/16/21 04:00 I & O for Last 24 hours: Intake & Output 08/13/21 08/14/21 08/15/21 08/16/21 11:59 11:59 11:59 11:59 Intake Total 2920 / 2920 1080 / 1080 960 / 960 1090 / 1090 Output Total 3715 / 3715 2242 / 2242 1999 Balance -795 / -795 -1162 / -1162 -1040 / -1040 1090 / 1090 Weight 138 lb 138 lb 2 oz 138 lb 1.984 oz Narrative: Patient is in no distress. Breath sounds are distant with some left-sided rhonchi. Heart has a regular rate and rhythm. Assessment and Plan (1) Pneumothorax, left Status: Acute Category: Medical Code(s): J93.9 - Pneumothorax, unspecified (2) Ruptured emphysematous bleb of lung Status: Acute Category: Medical Code(s): J43.9 - Emphysema, unspecified (3) Alcoholism Status: Acute Category: Medical Code(s): F10.20 - Alcohol dependence, uncomplicated (4) Cigarette smoker Status: Acute Category: Social Hx Code(s): F17.210 - Nicotine dependence, cigarettes, uncomplicated (5) Marijuana use, continuous Status: Acute Category: Medical Code(s): F12.90 - Cannabis use, unspecified, uncomplicated (6) Hypokalemia Status: Acute Category: Medical Code(s): E87.6 - Hypokalemia - Assessment and plan all Dx Assessment and Plan for all problems:: 1. Chest tube will remain on wall suction. Should air leak resolve transfer c an be canceled. 2. Start duo nebs and Mucinex for patient's chest congestion
--- NOTE | 2021-08-16 09:12 | PC.NURSE ---
Bubbling present in water seal chamber of chest tube; auscultation of air leak; site redressed with occlussive dressing, tube stripped, primary provider notified.
--- NOTE | 2021-08-16 09:46 | HMH.GSPN ---
Subjective Narrative: He states that he feels about the same overall except for developing a bit of cough and congestion . Progress Note: A&P (1) Pneumothorax, left Status: Acute Assessment and plan: Persistent and significant air leak. Continue chest tube to suction Awaiting transfer to tertiary care center for possible thoracic intervention (possible VATS/pleurodesis). (2) Ruptured emphysematous bleb of lung Status: Acute (3) Alcoholism Status: Acute (4) Cigarette smoker Status: Acute (5) Marijuana use, continuous Status: Acute (6) Hypokalemia Status: Acute Exam Vital signs and Labs for Last 24 Hours: Temp Pulse Resp BP Pulse Ox 98.5 F 77 16 151/89 H 91 L 08/16/21 08:00 08/16/21 08:00 08/16/21 08:00 08/16/21 08:00 08/16/21 08:00 I & O for Last 24 hours: Intake & Output 08/13/21 08/14/21 08/15/21 08/16/21 11:59 11:59 11:59 11:59 Intake Total 2920 / 2920 1080 / 1080 960 / 960 1570 / 1570 Output Total 3715 / 3715 2242 / 2242 1999 Balance -795 / -795 -1162 / -1162 -1040 / -1040 1570 / 1570 Weight 138 lb 138 lb 2 oz 138 lb 1.984 oz - Constitutional no acute distress - *Routine Respiratory Exam Absent: respiratory distress Comments: Chest tube remains to suction. Airleak persists and is more pronounced/consistent than 48 hours ago.
[2021-08-16 11:07] VITALS: PULSE 70; O2SAT 91
[2021-08-16 12:00] VITALS: BP 147/85; PULSE 78; RESP 16; TEMP 36.9; O2SAT 92
[2021-08-16 15:57] VITALS: BP 140/84; PULSE 92; RESP 16; TEMP 36.9; O2SAT 92
--- NOTE | 2021-08-21 07:05 | HMH.DCSUM ---
General - General Admission date:: 08/11/21 Discharge date: 08/16/21 HPI HPI: 56-year-old male with significant smoking history and history of prior pneumothorax of the left lung approximately 3 to 4 years ago presented to the emergency department on August 11 after developing acute onset of left-sided chest pain with shortness of breath on the evening of August 10. In the emergency department patient was found to have large left pneumothorax. Chest tube was placed by ER physician with reexpansion of the left lung. Patient has been admitted with for his pneumothorax and need for chest tube management. General surgery has been consulted for chest tube management. Patient had pain earlier in the shift at chest tube site but this has been relieved with Toradol. He reports a history of opiate dependence and would like to avoid opiate pain medications. Significant history also includes daily alcohol use drinking a half to a whole fifth of rum. Patient smokes marijuana frequently. He is a 1 to 3 pack/day smoker since the age of 16. Patient was hospitalized the [facility] 3 to 4 years ago for a left-sided pneumothorax that resolved with placement of chest tube. There is no family history of pneumothoraces Hospital Course Hospital Course: Patient was admitted for treatment of pneumothorax with chest tube. Surgical service was consulted for chest tube management. Patient had full reexpansion of the left lung within 48 hours of chest tube placement. However a significant air leak developed and did not resolve. When the air leak did not seem to be improving surgical service recommended seeking transfer to a facility where pleurodesis was available. [facility] was contacted and patient was accepted in transfer. Once a bed became available on August 16 patient was transferred to the [facility]. Objective Vital signs: Temp Pulse Resp BP Pulse Ox 98.5 F 92 H 16 140/84 92 L 08/16/21 15:57 08/16/21 15:57 08/16/21 15:57 08/16/21 15:57 08/16/21 15:57 DS: Diagnosis - Discharge Diagnosis (1) Pneumothorax, left Status: Acute (2) Ruptured emphysematous bleb of lung Status: Acute (3) Alcoholism Status: Acute (4) Cigarette smoker Status: Acute (5) Marijuana use, continuous Status: Acute (6) Hypokalemia Status: Acute Discharge Plan - Patient Discharge Instructions ACTIVITY: Continue current activity DIET: continue same diet Patient Instructions: DI for Pneumothorax Forms: Transfer Record - Follow up Plan Disposition: Xfer Short-Term Hosp Condition at discharge:: Stable Home Medications: Home Medications Medication Instructions Recorded Confirmed Type No Known Home Medications 08/11/21 08/11/21 History Prescriptions/Medication Reconciliation: Continued No Known Home Medications - Problem Reconciliation Problems Reviewed?: Yes
== END 2021-08-16 19:45 | disposition short-term general hospital (02) | DRG 201 ==
LOC: ER 11:44 → 2ND 14:44
PROVIDERS: Admitting Provider Family Medicine; Emergency Provider Emergency Medicine; Visit Provider Family Medicine
DX: J93.9 Pneumothorax, unspecified (principal); J43.9 Emphysema, unspecified; F10.20 Alcohol dependence, uncomplicated; F12.90 Cannabis use, unspecified, uncomplicated; E87.6 Hypokalemia; F17.210 Nicotine dependence, cigarettes, uncomplicated; Z20.822 Contact with and (suspected) exposure to COVID-19; J95.812 Postprocedural air leak; Y84.9 Medical procedure, unspecified as the cause of abnormal reaction of the patient, or of later complication, without mention of misadventure at the time of the procedure
CPT/HCPCS: 32556; 36415; 71045; 80048; 80053; 82103; 82803; 83735; 83880; 84484; 85025; 93005; 94640; 96365; 96375; 99152; 99153; 99285; C9803; U0003; U0005

== ENCOUNTER 2022-11-14 10:05 | Emergency (ER) | payer OTHER, SELFPAY ==
[2022-11-14 10:06] VITALS: BP 134/108; PULSE 122; RESP 18; TEMP 37.7; O2SAT 93; BMI 19.9
--- NOTE | 2022-11-14 10:18 | HMH.EDGENADL ---
Discharge Plan Disposition Patient Disposition: Home, Self-Care Condition: Good Prescriptions Prescriptions: No Action No Known Home Medications Activity Restrictions/Add. Instructions Additional Instructions/Restrictions: Take [id number] Tylenol and/or Motrin as needed. Follow-up with your primary care doctor in about 1 week if you do not feel any better. The x-ray of your shoulder today looked normal. The x-ray of your neck today showed some arthritis. When you go see your doctor discuss whether you may need an MRI of your neck. Return to the emergency department immediately if you feel worse in any way. Clinical Impressions Clinical Impression: Arthritis of neck Instructions Patient Instructions: DI for Chronic Pain -- Adult, DI for Acute Pain -- Adult Discharge ED Provider: Eugenio Mario Adult HPI General Chief complaint: PAIN Stated complaint: neck pain,pain to head,shoulders Time Seen by Provider: 11/14/22 10:18 Mode of Arrival: Ambulatory Source of Information: Patient History of Present Illness HPI narrative: The patient complains of a 2-week history of neck pain that began on the left side and now is bilateral. He denies any recent injuries. He also complains of right shoulder pain. He states that he can purposely dislocate and reduce this shoulder routinely. This relaxes him. He believes it may be he has dislocated it without being able to return it to a normal position. Related Data Home Medications Medication Instructions Recorded Confirmed No Known Home Medications 08/11/21 08/11/21 Allergies Allergy/AdvReac Type Severity Reaction Status Date / Time No Known Allergies Allergy Verified 08/11/21 09:31 [facility] Disclaimer: The information contained in this section may have been updated after the patient was seen, as this information can be updated by other users. Social History Smoking Status: Current every day smoker tobacco type: cigarettes packs per day: 2 alcohol intake: current substance use type: marijuana current occupational status: employed Travel in the last 8 weeks: None housing: house caffeine: No ROS Obtained: Yes All systems reviewed & no additional complaints except as documented Physical Exam General General appearance: alert Head Head exam: atraumatic Eye Eye exam: Present normal appearance and PERRL ENT ENT exam: Present normal exam Neck Neck exam: Present normal inspection, full ROM, trachea midline, tenderness (There is paraspinal tenderness bilaterally. There are no step-offs.) and other; Absent meningismus Chest Chest inspection: Present normal inspection and symmetric chest wall rise; Absent tenderness Respiratory Respiratory exam: Present normal lung sounds bilaterally; Absent respiratory distress or accessory muscle use Cardiovascular Cardiovascular exam: Present regular rate, normal rhythm and normal heart sounds Abdominal Exam Abdominal exam: Present soft and normal bowel sounds; Absent distention, tenderness, heel tap sign, Flores's sign, Rovsing's sign, tenderness at McBurney's Point or mass Extremities Exam Extremities exam: Present normal inspection and other (The patient experiences pain with active and passive movement of the right shoulder. There is no step-off. The extremity is neurovascularly intact.); Absent full ROM Back Exam Back exam: Present normal inspection; Absent CVA tenderness (R) or CVA tenderness (L) Neurological Exam Neurological exam: Present alert and oriented X3 Psychiatric Psychiatric exam: Present normal affect and normal mood Skin Skin exam: Present warm, dry, intact and normal color Medical Decision Making Nicolás Inquiry Pt receiving controlled substance: No Vital Signs: 11/14/22 10:06 11/14/22 10:30 11/14/22 11:00 Temperature 99.8 F H Temperature Source Oral Pulse Rate 115 H 115 H Pulse Rate [Left Radial] 122 H Respiratory Rate 18 20 17 Blood Pr
--- NOTE | 2022-11-14 10:21 | XR_ITS ---
PROCEDURE INFORMATION: Exam: XR Right Shoulder Exam date and time: 11/14/2022 10:24 AM Age: 57 years old Clinical indication: Pain; Upper arm and shoulder; Right; Bilateral; Additional info: Right shoulder pain TECHNIQUE: Imaging protocol: Radiologic exam of the Right shoulder. Views: 2 or more views. COMPARISON: None FINDINGS: Bones/joints: Slight lateral down angulation of the acromion with respect to the humeral head. Soft tissues: Normal. IMPRESSION: No evidence of acute osseous injury.
--- NOTE | 2022-11-14 10:21 | XR_ITS ---
PROCEDURE INFORMATION: Exam: XR Cervical Spine Exam date and time: 11/14/2022 10:29 AM Age: 57 years old Clinical indication: Neck pain TECHNIQUE: Imaging protocol: Radiologic exam of the cervical spine. Views: 2 or 3 views. COMPARISON: CR XR SHOULDER RT MIN 2V 11/14/2022 10:24 AM FINDINGS: Bones/joints: Slight anterolisthesis of C3 with respect to C2, C4 with respect to C3, C5 with respect to C6. Multilevel hypertrophic facet changes. Soft tissues: Unremarkable. IMPRESSION: 1. Cervical spondylosis with multilevel degenerative anterolisthesis. 2. Recommend follow-up with magnetic resonance imaging for further assessment of neural foraminal stenosis.
[2022-11-14 10:30] VITALS: BP 134/80; PULSE 115; RESP 20; O2SAT 94
--- NOTE | 2022-11-14 10:31 | PC.NURSE ---
entry level installation technician taking patient to X-ray
[2022-11-14 11:00] VITALS: BP 155/97; PULSE 115; RESP 17; O2SAT 96
[2022-11-14 12:03] VITALS: BP 128/86; PULSE 118; RESP 19; TEMP 36.7
== END 2022-11-14 12:07 | disposition home or self-care (01) ==
PROVIDERS: Emergency Provider Emergency Medicine
DX: M46.92 Unspecified inflammatory spondylopathy, cervical region (principal); F17.210 Nicotine dependence, cigarettes, uncomplicated
CPT/HCPCS: 72040; 73030; 96372; 99284

== ENCOUNTER 2023-11-06 17:20 | Emergency (ER) | payer OTHER, SELFPAY ==
[2023-11-06] VITALS (13 sets, daily range): BP systolic 137–164; BP diastolic 77–97; PULSE 99–113; RESP 13–20; TEMP 37.2–37.9; O2SAT 95–98; BMI 22.1
--- NOTE | 2023-11-06 17:22 | ECG_ITS ---
APPROVED REPORT Exam: Resting ECG HR:109 bpm ECG Measurements Heart Rate 109 AXES CA 156 P 85 QRSd 105 QRS 77 QT 264 T 164 QTc 328 Conclusion SINUS TACHYCARDIA SEPTAL MYOCARDIAL INFARCTION , OF INDETERMINATE AGE [40+ ms Q WAVE IN V1/V2] POSSIBLE LATERAL MYOCARDIAL INFARCTION , OF INDETERMINATE AGE [30 ms Q WAVE IN I/aVL/V5/V6] MODERATE T-WAVE ABNORMALITY, CONSIDER INFERIOR ISCHEMIA [-0.1+ mV T-WAVE IN II/aVF] ABNORMAL ECG UNCONFIRMED REPORT Electronically signed by : Camilo Reid MD 11/08/2023 17:31:31
--- NOTE | 2023-11-06 17:25 | ED_ITS ---
Discharge Plan Disposition Patient Disposition: Home, Self-Care Prescriptions Prescriptions: New potassium chloride 20 mEq tablet extended release 20 meq PO DAILY Qty: 30 2RF Referrals Follow up/Referrals: David Ramesy DO [Staff Physician] - See instructions Provider,Referral, [Primary Care Provider] - See instructions Activity Restrictions/Add. Instructions Additional Instructions/Restrictions: Take daily potassium supplement as prescribed. Dr. Ramsey (family doctor) information here, call him on Wednesday to set up follow-up to keep working on following your symptoms. Call your family doctor to establish care for this visit to the emergency department and schedule follow-up within 48 hours to ensure improvement. If you have any worsening of your condition or any other concerning signs or symptoms, return to the emergency department or your primary care doctor for further evaluation. Clinical Impressions Clinical Impression: Acute exacerbation of chronic obstructive pulmonary disease, Acute hypokalemia Instructions Patient Instructions: DI for Diarrhea and Traveler's Diarrhea -- Adult, DI for Diarrhea and Traveler's Diarrhea -- Child, DI for Nausea -- Adult, DI for Nausea -- Child Discharge ED Provider: Vini Weiss HPI General Chief Complaint: Nausea/Vomiting/Diarrhea Stated Complaint: soa Time Seen by Provider: 11/06/23 17:26 History of Present Illness HPI narrative: 50-year-old male history of hypertension, hyperlipidemia, COPD status left-sided pneumothorax and pleurodesis, previous history of heavy alcohol use presenting with generalized weakness. Patient states this been going on for about a month. Has not seen any family doctor for this. He has had vomiting since October 01, 2023. Since that time, he has not drink alcohol. States that he had generalized weakness, due to inability to tolerate p.o. intake. Denies hematemesis or bilious vomiting. Also denies diarrhea, fevers or chills or diaphoresis. States that he has had unintended weight loss over the past month and lightheadedness due to dehydration. Related Data Previous Rx's Medication Instructions Recorded potassium chloride 20 mEq 20 meq PO DAILY #30 tabs 11/06/23 tablet,extended release Allergies Allergy/AdvReac Type Severity Reaction Status Date / Time No Known Allergies Allergy Verified 08/11/21 09:31 [facility] Disclaimer: The information contained in this section may have been updated after the patient was seen, as this information can be updated by other users. Social History Smoking Status: Current every day smoker tobacco type: cigarettes packs per day: 2 alcohol intake: current substance use type: marijuana current occupational status: employed Travel in the last 8 weeks: None housing: house caffeine: No ROS Obtained: Yes All systems reviewed & no additional complaints except as documented Physical Exam General General appearance: alert and other (Chronically ill-appearing) Head Head exam: atraumatic and normocephalic Eye Eye exam: Present normal appearance, PERRL and EOMI ENT ENT exam: Present mucous membranes moist Neck Neck exam: Present trachea midline Chest Chest inspection: Present normal inspection and symmetric chest wall rise Respiratory Respiratory exam: Present normal lung sounds bilaterally; Absent respiratory distress, wheezes, stridor, accessory muscle use or prolonged expiratory phase Cardiovascular Cardiovascular exam: Present regular rate and normal rhythm Abdominal Exam Abdominal exam: Present soft and tenderness; Absent distention, guarding, rebound or rigidity Abdominal tenderness: Present RUQ, epigastrium and mild Extremities Exam Extremities exam: Absent edema Neurological Exam Neurological exam: Present alert, oriented X3 and CN II-XII intact Skin Skin exam: Present warm and dry; Absent cyanosis, diaphoresis or pallor HEART Score HEART Score HEART Score assessment performed?: No Critical Care Critical Care Time Critical Care Time: No Medical Decision Making Medical Records Medical records reviewed: Yes I reviewed the patient's medical records. Nicolás Inquiry Pt receiving controlled substance: No Nicolás was queried for this patient: No Vital Signs Vital Signs: 11/06/23 17:21 11/06/23 18:00 11/06/23 18:52 Temperature 100.3 F H Temperature Source Oral Pulse Rate 99 H 110 H Pulse Rate [Radial] 109 H Respiratory Rate 20 16 Blood Pressure 156/84 H 155/86 H Blood Pressure [Right Arm] 153/97 H Blood Pressure Mean [Right Arm] 115 Blood Pressure Source [Right Arm] Automatic Cuff Blood Pressure Position [Right Arm] Sitting 02 Sat by Pulse Oximetry 97 95 98 Oxygen Delivery Method Room Air Room Air 11/06/23 17:30 11/06/23 17:55 11/06/23 19:15 Temperature 98.9 F Temperature Source Oral Pulse Rate 102 H 100 H 111 H Pulse Rate [Radial] Respiratory Rate 17 Blood Pressure 149/80 H Blood Pressure [Right Arm] Blood Pressure Mean [Right Arm] Blood Pressure Source [Right Arm] Blood Pressure Position [Right Arm] 02 Sat by Pulse Oximetry 95 Oxygen Delivery Method Room Air 11/06/23 19:30 11/06/23 20:00 11/06/23 20:30 Temperature Temperature Source Pulse Rate 113 H 106 H 102 H Pulse Rate [Radial] Respiratory Rate 17 14 13 Blood Pressure 157/88 H 148/87 H 137/81 Blood Pressure [Right Arm] Blood Pressure Mean [Right Arm] Blood Pressure Source [Right Arm] Blood Pressure Position [Right Arm] 02 Sat by Pulse Oximetry 96 97 97 Oxygen Delivery Method 11/06/23 21:00 11/06/23 21:30 Temperature Temperature Source Pulse Rate 107 H 104 H Pulse Rate [Radial] Respiratory Rate 18 16 Blood Pressure 164/93 H 147/91 H Blood Pressure [Right Arm] Blood Pressure Mean [Right Arm] Blood Pressure Source [Right Arm] Blood Pressure Position [Right Arm] 02 Sat by Pulse Oximetry 98 96 Oxygen Delivery Method Lab Data Labs: Lab Results 11/06/23 17:26: VBG pH 7.46 H, VBG pCO2 40.3, VBG pO2 32.0, VBG HCO3 28.1, VBG Total CO2 29.3 H, VBG O2 Saturation 62.8, VBG Base Excess 4.3 H 11/06/23 17:30: WBC 8.3, RBC 3.87 L, Hgb 14.0 L, Hct 40.8 L, MCV 105.6 H, MCH 36.2 H, MCHC 34.3, RDW 18.6 H, Plt Count 300, MPV 10.3, Neut % (Auto) 84.2 H, Lymph % (Auto) 8.8 L, Clare % (Auto) 5.4, Eos % (Auto) 1.2, Baso % (Auto) 0.3, Neut # (Auto) 7.0, Lymph # (Auto) 0.7, Clare # (Auto) 0.5, Eos # (Auto) 0.1, Baso # (Auto) 0.0, Sodium 129 L, Potassium 2.6 L*, Chloride 84 L, Carbon Dioxide 35 H , Anion Gap 12.6, BUN 4 L, Creatinine 0.50 L, Estimated Creat Clear 155, Estimated GFR 171, Est GFR ( Amer) 207, Glucose 110 H, Calcium 9.2, Total Bilirubin 1.4 H, AST 108 H, ALT 44, Alkaline Phosphatase 160 H, Troponin I < 0.01, Total Protein 8.9 H, Albumin 4.1, Globulin 4.8 H, Albumin/Globulin Ratio 0.9 L, Lipase 185, Plasma/Serum Alcohol < 10 11/06/23 17:30 11/06/23 17:30 Response Orders (Tests/Meds): ED MEDICATIONS Discontinued Medications Generic Name Dose Route Start Last Admin Trade Name Freq PRN Reason Stop Dose Admin Albuterol/Ipratropium 6 ml 11/06/23 17:25 11/06/23 17:30 Ipratropium/Albuterol 3 Ml Neb IH 11/06/23 17:26 6 ml ONCE ONE Administration Aspirin 324 mg 11/06/23 17:25 11/06/23 18:02 Aspirin 81mg Chewable Tablet PO 11/06/23 17:26 324 mg ONCE ONE Administration Potassium Chloride/Water 100 mls @ 100 mls/hr 11/06/23 18:14 11/06/23 20:07 Potassium Chloride 10meq/100ml Ivpb IV 11/06/23 20:13 100 mls/hr Q1H SARAHY Administration Iopamidol 75 ml 11/06/23 18:44 11/06/23 18:45 Iopamidol-370 (76%);100ml Bottle IV 11/06/23 18:45 75 ml ONCE ONE Administration Magnesium Oxide 800 mg 11/06/23 20:09 11/06/23 20:33 Magnesium Oxide 400mg Tablet PO 11/06/23 20:10 800 mg ONCE ONE Administration Methylprednisolone Sodium Succinate 125 mg 11/06/23 17:25 11/06/23 18:02 Methylprednisolone Sod Succ 125mg Vial IV 11/06/23 17:26 125 mg ONCE ONE Administration Ondansetron HCl 4 mg 11/06/23 18:13 11/06/23 18:30 Ondansetron 4mg/2ml Vial IV 11/06/23 18:14 4 mg ONCE ONE Administration Potassium Chloride 60 meq 11/06/23 18:13 11/06/23 18:29 Potassium Chloride 20meq Tab PO 11/06/23 18:14 60 meq ONCE ONE Administration Sodium Chloride 10 ml 11/06/23 18:44 11/06/23 18:45 Sodium Chloride 0.9% 10ml Syr (Rad Only) IV 11/06/23 18:45 10 ml ONCE ONE Administration ORDERS Category Date Time Status CT abdomen pelvis w con Stat Cat Scan 11/06/23 18:13 Completed XR chest portable Stat Exams 11/06/23 17:25 Completed Complete Blood Count Auto Diff Stat Lab 11/06/23 17:30 Completed Comprehensive Metabolic Panel Stat Lab 11/06/23 17:30 Completed Ethanol [Ethyl Alcohol] Stat Lab 11/06/23 17:30 Completed Lipase Stat Lab 11/06/23 17:30 Completed Troponin I Stat Lab 11/06/23 17:30 Completed Venous Blood Gas Stat RT 11/06/23 17:26 Completed MDM Narrative Medical Decision Narrative: 50-year-old male history of hypertension, hyperlipidemia, COPD status left-sided pneumothorax and pleurodesis, previous history of heavy alcohol use presenting with generalized weakness. Patient states this been going on for about a month. Has not seen any family doctor for this. He has had vomiting since October 01, 2023. Since that time, he has not drink alcohol. States that he had generalized weakness, due to inability to tolerate p.o. intake. Denies hematemesis or bilious vomiting. Also denies diarrhea. States that he has had unintended weight loss over the past month and lightheadedness due to dehydration. It should be noted that patient does not treat his comorbidities and medications complicating this care. History was obtained via conversation with patient. On arrival, patient hemodynamically stable, alert, oriented x4, appropriate, GCS 15, moving all extremities spontaneously, pupils equal and reactive to light. Full physical exam performed and significant for chronically ill-appearing male in no acute distress. Lungs without focal breath sounds bilaterally, moving air throughout. Cardiac exam within normal limits. No lower extremity edema. Abdomen is soft, but tender in the right upper quadrant without secondary signs of peritonitis. Differential includes PUD, gastritis, hepatitis, pancreatitis, malignancy, ACS, CO, COPD exacerbation, pneumonia, bowel obstruction, among others. Patient was given fluids, aspirin, DuoNeb, Solu-Medrol, magnesium for symptomatic management and correction of underlying abnormalities. Workup independently interpreted and significant for nonactionable CBC. He does seem to be a little hemoconcentrated. Hypokalemic 2.6 and hyponatremic, this was repleted with oral and IV potassium as well as IV fluids. Patient also given oral magnesium. CT abdomen pelvis without acute intra-abdominal pathology. See radiology read for full review of final results. Independent interpretation of EKG shows sinus tachycardia [address] elevations. Patient does have T wave inversions in inferior and lateral leads. OR, QRS, QT intervals within normal limits Patient was placed in observation beginning at 5:30 PM in order to replete potassium oral and IV as well as obtain CT scan given abdominal pain and reassess and determine need for admission versus home-going. The patient was provided meds, fluids while awaiting results. Independent interpretation of results demonstrated CT abdomen pelvis. On reevaluation, patient feeling much better after DuoNebs, potassium and fluids. At this time, I feel patient is appropriate for discharge. Total observation time 4 hours. Because patient at baseline without signs or symptoms of clinical decompensation, deemed appropriate for discharge. Results were relayed to patient who voiced understanding and were agreeable to outpatient management and follow up. At the time of discharge the patient was hemodynamically stable, tolerating PO, and mobilizing appropriately.
--- NOTE | 2023-11-06 17:25 | XR_ITS ---
PROCEDURE INFORMATION: Exam: XR Chest Exam date and time: 11/06/2023 6:10 PM Age: 58 years old Clinical indication: Shortness of breath; Additional info: SOA TECHNIQUE: Imaging protocol: Radiologic exam of the chest. Views: 1 view. COMPARISON: CR XR CHEST PORTABLE 08/14/2021 7:25 AM FINDINGS: Lungs: Extensive bullous emphysema is noted throughout the lungs with a stable large bulla in the right mid lung. Pleural spaces: No dense parenchymal consolidation, pleural effusion, or pneumothorax. Heart/Mediastinum: No evidence of mediastinal widening or cardiac silhouette enlargement; the mediastinum and heart appear within normal limits for contour and size. Bones/joints: No evidence of acute osseous abnormalities within the visualized portions of the thoracic spine and ribs. Osseous structures appear appropriate for patient age. IMPRESSION: Extensive bullous disease, stable from prior. No acute findings.
[2023-11-06] MEDS: IPRATROPIUM/ALBUTEROL 3 ML NEB 6 ML IH (17:30)
[2023-11-06 17:43] LABS: Basophils % 0.3 % (0.1-2.0); Eosinophils # 0.1 K/mm3 (0.0-0.4); Eosinophils % 1.2 % (0.1-12.0); Hematocrit 40.8 % (42.0-52.0); Lymphocytes # 0.7 K/mm3 (0.7-4.5); Lymphocytes % 8.8 % (10-50); Mean Corpuscular HGB Conc 34.3 g/dL (31.8-35.4); Mean Corpuscular Hemoglobin 36.2 pg (27.0-31.2); Mean Corpuscular Volume 105.6 fl (80-94); Mean Platelet Volume 10.3 fl (7.4-10.4); Monocytes # 0.5 K/mm3 (0.1-1.0); Monocytes % 5.4 % (1.7-9.3); Neutrophils % 84.2 % (37.0-80.0); Platelet Count 300 K/mm3 (142-424); Red Blood Count 3.87 M/mm3 (4.60-6.20); Red Cell Distribution Width 18.6 % (11.5-17.5); White Blood Count 8.3 K/mm3 (4.8-10.8)
[2023-11-06 17:48] LABS: Chloride 84 mmol/L (98-107); Sodium 129 mmol/L (136-145)
[2023-11-06 17:50] LABS: Alanine Aminotransferase 44 U/L (12-78); Aspartate Amino Transferase 108 U/L (17-59); Blood Urea Nitrogen 4 mg/dl (9-20); Creatinine Clearance Estimated 155 mL/min (50-200); Estimated Glomerular Filt Rate 171 ml/min (>60); GFR (African American) 207 ML/MIN (>60)
[2023-11-06 17:51] LABS: Albumin Level 4.1 g/dl (3.5-5.0); Albumin/Globulin Ratio 0.9 (1.1-1.8); Alkaline Phosphatase 160 U/L (38-126); Anion Gap 12.6 mEq/L (5-15); Bilirubin,Total 1.4 mg/dl (0.2-1.3); Calcium 9.2 mg/dl (8.4-10.2); Carbon Dioxide 35 mmol/L (22.0-30.0); Globulin 4.8 g/dL (1.3-3.2); Glucose 110 mg/dl (74-100); Total Protein,Serum 8.9 g/dl (6.3-8.2)
[2023-11-06 17:56] LABS: Potassium 2.6 mmoL/L (3.5-5.1)
[2023-11-06 17:57] LABS: VBG Base Excess 4.3 mmol/L (-2.4-2.3); VBG HCO3 28.1 mmol/L (23-30); VBG Oxygen Saturation 62.8 % (50-70); VBG PCO2 40.3 mmol/L (35-51); VBG PH 7.46 mmol/L (7.31-7.41); VBG Total CO2 29.3 mmol/L (23-27)
[2023-11-06] MEDS: METHYLPREDNISOLONE SOD SUCC 125MG VIAL 125 MG IV (18:02)
[2023-11-06] MEDS: ASPIRIN 81MG CHEWABLE TABLET 324 MG PO (18:02)
[2023-11-06 18:07] LABS: Troponin I < 0.01 ng/ml (0.00-0.034)
--- NOTE | 2023-11-06 18:13 | CT_ITS ---
PROCEDURE INFORMATION: Exam: CT Abdomen And Pelvis With Contrast Exam date and time: 11/06/2023 6:36 PM Age: 58 years old Clinical indication: Abdominal pain; Other: Ruq pain; Additional info: Ruq pain and elevated lfts TECHNIQUE: Imaging protocol: Computed tomography of the abdomen and pelvis with contrast. Radiation optimization: All CT scans at this facility use at least one of these dose optimization techniques: automated exposure control; mA and/or kV adjustment per patient size (includes targeted exams where dose is matched to clinical indication); or iterative reconstruction. Contrast material: ISOVUE; Contrast volume: 75 ml; Contrast route: IV; COMPARISON: 1. CR XR CHEST PORTABLE 11/06/2023 6:10 PM 2. CR XR CHEST PORTABLE 08/14/2021 7:25 AM 3. CR XR CHEST PORTABLE 08/12/2021 9:10 AM FINDINGS: Lungs: Calcified granuloma in the medial left lung base. Partially visualized extensive bullous disease of the right lung. Scattered areas of bronchial wall thickening which are likely chronic inflammatory. A few areas of subpleural reticulation are noted, nonspecific. Liver: There are calcifications in the liver which most likely reflect calcified granulomas. There is mild periportal edema which is usually related to volume status. Gallbladder and bile ducts: Normal. No calcified stones. No ductal dilation. Pancreas: The pancreas is of normal size and morphology, without evidence of masses, cysts, or calcifications. The pancreatic duct is not dilated. Spleen: There are multiple calcifications in the spleen most likely reflects small granulomas. Adrenal glands: The adrenal glands appear normal. Kidneys and ureters: Both kidneys are of normal size and show uniform attenuation. There are no renal masses, cysts, or calculi. The adrenal glands appear normal. Stomach and bowel: There is large volume stool throughout the colon. Appendix: No evidence of appendicitis. Intraperitoneal space: Unremarkable. No free air. No significant fluid collection. Vasculature: There is atherosclerotic disease of the visualized aorta and its major branch vessels. Lymph nodes: No enlarged or pathological lymph nodes are identified in the abdomen or pelvis. Urinary bladder: There is moderate distention of the urinary bladder. Reproductive: No significant pathology. Bones/joints: There is diffuse degenerative disease of the visualized osseous structures. Soft tissues: There is a small fat containing umbilical hernia. IMPRESSION: 1. No definite signs of inflammatory conditions, masses, adenopathy, or collections were observed in the abdomen or pelvis at the time of imaging. Additionally, the urinary tract and gastrointestinal system did not show any evidence of obstruction on the images acquired. 2. Otherwise, incidental findings as above.
[2023-11-06] MEDS: POTASSIUM CHLORIDE 20MEQ TAB 60 MEQ PO (18:29)
[2023-11-06] MEDS: KCl 10mEq/100ml 100 ML 100 MEQ IV ×2 (18:29→20:07)
[2023-11-06] MEDS: ONDANSETRON 4MG/2ML VIAL 4 MG IV (18:30)
[2023-11-06] MEDS: SODIUM CHLORIDE 0.9% 10ML SYR (RAD ONLY) 10 ML IV (18:45)
[2023-11-06] MEDS: IOPAMIDOL-370 (76%);100ML BOTTLE 75 ML IV (18:45)
--- NOTE | 2023-11-06 18:47 | PC.NURSE ---
pt resting on side of bed no needs at this time,call light at bs
[2023-11-06 18:48] LABS: Lipase 185 U/L (23-300)
[2023-11-06 18:49] LABS: Ethyl Alcohol < 10 mg/dl (0-10)
--- NOTE | 2023-11-06 20:01 | PC.NURSE ---
in room talking with patient at this time.
[2023-11-06] MEDS: MAGNESIUM OXIDE 400MG TABLET 800 MG PO (20:33)
== END 2023-11-06 22:15 | disposition home or self-care (01) ==
PROVIDERS: Emergency Provider Emergency Medicine
DX: J44.1 Chronic obstructive pulmonary disease with (acute) exacerbation (principal); E87.6 Hypokalemia; R53.1 Weakness; I10 Essential (primary) hypertension; E78.5 Hyperlipidemia, unspecified; F17.210 Nicotine dependence, cigarettes, uncomplicated; R00.0 Tachycardia, unspecified
CPT/HCPCS: 71045; 74177; 80053; 82803; 83690; 84484; 85025; 93005; 96365; 96366; 96375; 99285; J2405; Q9967

== ENCOUNTER 2024-12-05 14:17 | Outpatient (CLI) | payer OTHER, SELFPAY ==
[2024-12-05 15:16] LABS: Hemoglobin A1C 4.9 % (4.0-6.0)
[2024-12-05 15:20] LABS: Basophils # 0.1 K/mm3 (0-0.2); Basophils % 0.9 % (0.1-2.0); Eosinophils # 0.1 K/mm3 (0.0-0.4); Eosinophils % 1.9 % (0.1-12.0); Hematocrit 49.7 % (42.0-52.0); Hemoglobin 16.7 g/dL (14.1-18.0); Lymphocytes # 1.3 K/mm3 (0.7-4.5); Lymphocytes % 21.8 % (10-50); Mean Corpuscular HGB Conc 33.6 g/dL (31.8-35.4); Mean Corpuscular Hemoglobin 33.7 pg (27.0-31.2); Mean Corpuscular Volume 100.2 fl (80-94); Monocytes # 0.5 K/mm3 (0.1-1.0); Monocytes % 8.2 % (1.7-9.3); Neutrophils # 3.9 K/mm3 (1.8-7.8); Neutrophils % 66.2 % (37.0-80.0); Platelet Count 189 K/mm3 (142-424); Red Blood Count 4.96 M/mm3 (4.60-6.20); Red Cell Distribution Width 14.5 % (11.5-17.5); White Blood Count 5.9 K/mm3 (4.8-10.8)
[2024-12-05 15:34] LABS: Alanine Aminotransferase 26 U/L (12-78); Albumin Level 3.9 g/dl (3.5-5.0); Albumin/Globulin Ratio 1.3 (1.1-1.8); Alkaline Phosphatase 105 U/L (38-126); Aspartate Amino Transferase 34 U/L (17-59); Bilirubin,Total 0.7 mg/dl (0.2-1.3); Blood Urea Nitrogen 5 mg/dl (9-20); Calcium 9.3 mg/dl (8.4-10.2); Carbon Dioxide 35 mmol/L (22.0-30.0); Chloride 102 mmol/L (98-107); Chol/HDL Ratio 3.9 (1-3.5); Cholesterol 108 mg/dl (140-200); Estimated Glomerular Filt Rate 138 ml/min (>60); GFR (African American) 167 ML/MIN (>60); Globulin 3.1 g/dL (1.3-3.2); Glucose 94 mg/dl (74-100); HDL Cholesterol 28 mg/dl (40-60); Magnesium 1.5 mg/dl (1.6-2.3); Sodium 139 mmol/L (136-145); Triglycerides 80 mg/dl (30-150); VLDL Cholesterol 16 mg/dL (0-40)
[2024-12-05 15:45] LABS: Direct LDL Cholesterol 66.87 mg/dL (100-129)
[2024-12-05 16:24] LABS: Vitamin B12 306 pg/mL (239-931)
== END 2024-12-05 23:59 | disposition home or self-care (01) ==
LOC: LAB 14:18
PROVIDERS: PCP Internal Medicine; Visit Provider Internal Medicine
DX: D53.9 Nutritional anemia, unspecified (principal); E83.42 Hypomagnesemia; E87.8 Other disorders of electrolyte and fluid balance, not elsewhere classified; Z13.220 Encounter for screening for lipoid disorders; Z13.1 Encounter for screening for diabetes mellitus
CPT/HCPCS: 36415; 80053; 80061; 82607; 82746; 83036; 83735; 85025

== ENCOUNTER 2024-12-20 14:00 | Outpatient (CLI) | payer OTHER, SELFPAY ==
[2024-12-20 21:27] LABS: Microscopic, Urine URINE MICROSCOPIC (MICROSCOPIC)
[2024-12-20 22:07] LABS: Appearance,Urine CLEAR (Clear); Blood, Urine Negative (Negative); Color,Urine ORANGE (Yellow); Glucose,Urine (UA) Negative (Negative); Ketones,Urine Negative (Negative); Leukocyte Esterase,Urine Negative (Negative); Nitrate,Urine Negative (Negative); PH,Urine 6.5 (5.0-8.5); Protein,Urine TRACE (Negative); Specific Gravity, Urine 1.015 (1.005-1.030); Urobilinogen,Urine 0.2 EU/dl (0.2)
[2024-12-20 23:31] LABS: Bilirubin,Urine Negative (Negative)
[2024-12-21 00:27] LABS: Bacteria,Urine 1+ /lpf; Mucus,Urine 1+ /lpf
== END 2024-12-20 23:59 | disposition home or self-care (01) ==
LOC: LAB.DROPOF 12-21 10:38
PROVIDERS: PCP Internal Medicine; Visit Provider Internal Medicine
DX: R82.998 Other abnormal findings in urine (principal)
CPT/HCPCS: 81001; 87086